=== PATIENT | female | born 2000 | race Caucasian/White ===

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

== ENCOUNTER → 2025-02-04 | Outpatient (REF) | payer OTHER ==
[~2025-02-04] MED LIST: IBUP-1114 PO; MAPA500T2 PO; PRENTAB55 PO
== END ==
LOC: M LABCFH 10:49
DX: Z12.4 Encounter for screening for malignant neoplasm of cervix (principal)